=== PATIENT | female | born 1990 | race Caucasian/White ===

== ENCOUNTER 2016-04-29 21:40 | Emergency (ER) | payer MEDICAID ==
[2016-04-29] MEDS ORDERED: HYDROcodone/ACETAMIN 5-325 MG* 1 TAB PO ONE (22:27)
[2016-04-29 22:32] VITALS: BP 122/66
--- NOTE | 2016-04-29 22:37 | UC ---
Respiratory Complaint HPI - HPI Summary HPI Summary: Ill for 3d with runny nose, congestion, cough. Mostly concerned with severe low back pain when she coughs or sneezes. Was told in past she has a "dislocated disc", and this seems to have dislocated again with her coughing. Causes severe shooting pain. Wants something for her back. Whole family ill with same sympotms - History of Current Complaint Chief Complaint: UCRespiratory Stated Complaint: RUNNY NOSE COUGH SORE THROAT Time Seen by Provider: 04/29/16 21:50 Hx Obtained From: Patient, Family/Communications Instructor - Hx Last Menstrual Period: 6 MONTHS AGO. WENT OFF DEPO 9 MONTHS AGO Onset/Duration: Gradual Onset, Lasting Days - 3 Timing: Constant Severity Initially: Mild Severity Currently: Moderate Character: Cough: Nonproductive Aggravating Factors: Exertion, Recumbent Position Alleviating Factors: Nothing Associated Signs And Symptoms: Positive: Chills, URI, Nasal Congestion, Hoarseness, Sinus Discomfort. Negative: Hemoptysis - Risk Factors Pulmonary Embolism Risk Factors: Smoking Cardiac Risk Factors: Smoking - Allergies/Home Medications Allergies/Adverse Reactions: Allergies Allergy/AdvReac Type Severity Reaction Status Date / Time No Known Allergies Allergy Verified 04/29/16 21:50 Home Medications: Home Medications Dextromethorphan-Phenylephrine [Day Time Multi-Symptom Co 10-5-325 mg] 1 cap PO PRN 04/29/16 [History] PMH/Surg Hx/FS Hx/Imm Hx Respiratory History Of: Reports: Asthma - Surgical History Surgical History: Yes Surgery Procedure, Year, and Place: T&A - Family History Known Family History: Positive: Cardiac Disease, Hypertension - Social History Occupation: Unemployed Lives: With Family Alcohol Use: None Substance Use Type: None Smoking Status (MU): Heavy Every Day Tobacco Smoker Type: Cigarettes Amount Used/How Often: 1/2 pack daily Household Exposure Type: Cigarettes Review of Systems Constitutional: Chills, Fatigue Skin: Negative Eyes: Negative ENT: Sore Throat - mild, Nasal Discharge Respiratory: Cough Cardiovascular: Negative Gastrointestinal: Negative Genitourinary: Negative Motor: Negative Neurovascular: Negative Musculoskeletal: Negative Neurological: Negative Psychological: Negative All Other Systems Reviewed And Are Negative: Yes Physical Exam Triage Information Reviewed: Yes Appearance: Well-Appearing, No Pain Distress, Well-Nourished Vital Signs: Initial Vital Signs Temp 98.4 F 04/29/16 21:52 Pulse 100 04/29/16 21:52 Resp 16 04/29/16 21:52 BP 122/66 04/29/16 21:52 Pulse Ox 98 04/29/16 21:52 Vital Signs Reviewed: Yes Eye Exam: Normal Eyes: Positive: Conjunctiva Clear ENT: Positive: Pharyngeal erythema, Nasal congestion, Nasal drainage, TMs normal , Muffled/hoarse voice - hoarse. Negative: Tonsillar swelling, Tonsillar exudate, Trismus Neck exam: Normal Neck: Positive: Supple Respiratory: Positive: Lungs clear, Normal breath sounds, No respiratory distress, No accessory muscle use Cardiovascular Exam: Normal Musculoskeletal: Positive: Other: - pain right lumbar area to palpation. Antalgic gait. Neurological Exam: Normal Psychological Exam: Normal Skin Exam: Normal UC Diagnostic Evaluation - Laboratory O2 Sat by Pulse Oximetry: 98 Respiratory Course/Dx - Differential Dx/Diagnosis Differential Diagnosis/HQI/PQRI: Bronchitis, Lower Resp Infection, Sinusitis Provider Diagnoses: URI; back strain Discharge - Discharge Plan Condition: Stable Disposition: HOME Prescriptions: Guaifenesin-Codeine [Cheratussin AC 100-10 mg/5Ml] 1 - 2 teasp PO Q6HR PRN #120 ml MDD 30ML PRN Reason: Cough HYDROcodone/ACETAMIN 5-325 MG* [[place] 5-325 TAB*] 1 - 2 tab PO Q6H PRN #14 tab MDD 6 tab PRN Reason: back pain Ibuprofen TAB* [Motrin TAB* 800 MG] 800 mg PO Q8H PRN #60 tab PRN Reason: Pain Pseudoephedrine HCl [Sudafed 12 Hour] 120 mg PO BID PRN #20 tab PRN Reason: Congestion Patient Education Materials: Upper Respiratory Infection (ED) Referrals: No Primary Care Phys,NOPCP [Primary Care Provider] -
== END 2016-04-29 22:39 | disposition home or self-care (01) ==
LOC: UCCORT 21:40
DX: J06.9 Acute upper respiratory infection, unspecified (principal); S39.012A Strain of muscle, fascia and tendon of lower back, initial encounter; X50.0XXA Overexertion from strenuous movement or load, initial encounter; Y93.89 Activity, other specified; Y92.9 Unspecified place or not applicable; F17.210 Nicotine dependence, cigarettes, uncomplicated
CPT/HCPCS: 99212; G0463

== ENCOUNTER 2016-11-29 12:39 | Emergency (ER) | payer MEDICAID ==
[2016-11-29 12:49] VITALS: BP 103/61
--- NOTE | 2016-11-29 13:14 | UC ---
Dental HPI - HPI Summary HPI Summary: 26 y/o female presents to the urgent care c/o swelling of her RT cheek and numbness to his right lip and chin since yesterday. Pt states she went to the Dentist 1 week ago for tooth extraction and she had a Rt lower jaw abscess which is now resolving. However, her dentist told her that the swelling must resolve in order to continue with any intervention, and advised her to come to the urgent care to get antibiotics. Pt states pain is 9/10. Pt denies fever, SOB, chest pain, N/V/D. CLARKE. Pt is eating well. - History of Current Complaint Chief Complaint: UCDentalProblem Stated Complaint: DENTAL COMPLAINT Time Seen by Provider: 11/29/16 13:05 Hx Obtained From: Patient Hx Last Menstrual Period: 11/24/16 ?: No Onset/Duration: Gradual Onset, Lasting Days, Still Present Severity: Moderate Pain Intensity: 9 Pain Scale Used: 0-10 Numeric Aggravating: Chewing Alleviating: Nothing Related History: Swelling - w/ pain and numbness on the RT side of lip and chin - Allergies/Home Medications Allergies/Adverse Reactions: Allergies Allergy/AdvReac Type Severity Reaction Status Date / Time No Known Allergies Allergy Verified 11/29/16 12:43 Home Medications: Home Medications Amoxicillin PO (*) [Amoxicillin 875 MG (*)] 875 mg PO BID 11/29/16 [History Confirmed 11/29/16] PMH/Surg Hx/FS Hx/Imm Hx Previously Healthy: Yes Respiratory History: Asthma - Surgical History Surgical History: Yes Surgery Procedure, Year, and Place: T&A - Family History Known Family History: Positive: Cardiac Disease, Hypertension - Social History Occupation: Unemployed Lives: With Family Alcohol Use: None Substance Use Type: None Smoking Status (MU): Heavy Every Day Tobacco Smoker Type: Cigarettes Amount Used/How Often: 1/2 pack daily Household Exposure Type: Cigarettes Review of Systems Constitutional: Negative Skin: Negative Eyes: Negative ENT: Other - Dental pain w/ swelling and numbness on the RT lower jaw Respiratory: Negative Cardiovascular: Negative Gastrointestinal: Negative Genitourinary: Negative Motor: Negative Neurovascular: Negative Musculoskeletal: Negative Neurological: Negative Psychological: Negative All Other Systems Reviewed And Are Negative: Yes Physical Exam Triage Information Reviewed: Yes Appearance: Well-Appearing, No Pain Distress, Well-Nourished, Obese Vital Signs: Initial Vital Signs Temp 99.3 F 11/29/16 12:44 Pulse 97 11/29/16 12:44 Resp 16 11/29/16 12:44 BP 103/61 11/29/16 12:44 Pulse Ox 99 11/29/16 12:44 Vital Signs Reviewed: Yes Eye Exam: Normal Eyes: Positive: Conjunctiva Clear - PERRLA, EOMI, fundi grossly normal ENT: Positive: Normal ENT inspection, Hearing grossly normal, Pharynx normal, TMs normal, Other:. Negative: Nasal congestion, Nasal drainage, Tonsillar swelling, Tonsillar exudate Dental: Positive: Gross Decay/Caries @ - Pt with poor dental hygiene, multiple caries specailly in the frontal upper teeth w/ fractured teeth #6,7,8. RT side of lower mandible with a papable nodule at the level of molar #28,29, tender to palpation, no erythema, moderate swelling. No caries observed on that side. numbness on the RT side of chin and lower madible due to swelling. No anterior cervial lymphadenopathy palpated. Dental Complaint Course/Dx - Course Course Of Treatment: 26 y/o female presents to the urgent care c/o swelling of her RT cheek and numbness to his right lip and chin since yesterday. Pt states she went to the Dentist 1 week ago for tooth extraction and she had a Rt lower jaw abscess which is now resolving. However, her dentist told her that the swelling must resolve in order to continue with any intervention, and advised her to come to the urgent care to get antibiotics. Pt states pain is 9/10. Pt denies fever, SOB, chest pain, N/V/D. CLARKE. Pt is eating well. Pt Rx, Clyndamycin PO, Ibuprofen PO to alleviate symptoms. Highly recommended to f/u with her Dentist as soon as possible for further treatment. - Differential Dx/Diagnosis Differential Diagnosis/Dx: Dental Abscess, Dental Caries, Gingivitis, Odontogenic Pain, Peridontic Disease, Pharyngitis, Tonsillitis Provider Diagnoses: 1- Dental pain w/ an abscess Discharge - Discharge Plan Condition: Stable Disposition: HOME Prescriptions: Clindamycin Cap(NF) [Clindamycin Cap 300 mg Cap(NF)] 300 mg PO TID #21 cap Ibuprofen TAB* [Motrin TAB* 800 MG] 800 mg PO Q6H #30 tab Patient Education Materials: Dental Abscess (ED) Referrals: Nithya Lemus CNM [Primary Care Provider] - 2 Days Additional Instructions: Please take full course of antibiotic to avoid resistance, [place] your teeth well TID. Take ibuprofen as instructed after meals to alleviate pain and swelling. F/u with your Dentis as soon as possible for further management
[2016-11-29] MEDS ORDERED: Ketorolac INJ* 60 MG/2 ML VIAL IM ONE (13:18)
[2016-11-29] MEDS ORDERED: Clindamycin CAP* 150 MG PO ONE (13:28)
== END 2016-11-29 13:46 | disposition home or self-care (01) ==
LOC: UCCORT 12:39
DX: K04.7 Periapical abscess without sinus (principal); K08.409 Partial loss of teeth, unspecified cause, unspecified class; J45.909 Unspecified asthma, uncomplicated; E66.9 Obesity, unspecified; F17.210 Nicotine dependence, cigarettes, uncomplicated
CPT/HCPCS: 96372; 99212; A9270-GY; G0463; J1885